=== PATIENT | female | born 1985 | race Caucasian/White ===

== ENCOUNTER 2016-07-13 15:07 | Emergency (ER) | payer SELFPAY ==
[2016-07-13 15:15] VITALS: BP 135/72
[2016-07-13] MEDS ORDERED: LEVE500T56 PO (15:24)
--- NOTE | 2016-07-13 15:49 | RAD ---
CT of the head without contrast, 07/13/2016: History: Seizure, fall, pain The ventricles are within normal limits in size. There is no shift of the midline structures. There is no evidence of acute intracranial hemorrhage or mass effect. The patient's skull is quite thick. IMPRESSION: No acute intracranial abnormality is detected. PQRS Compliance Statement: One or more of the following individualized dose reduction techniques were utilized for this examination: 1. Automated exposure control 2. Adjustment of the mA and/or kV according to patient size 3. Use of iterative reconstruction technique
--- NOTE | 2016-07-13 15:51 | RAD ---
Three-view study of the lumbar spine History: Low back pain. Patient has seizure last night and felt backwards. Findings: No compression fracture or discitis or osteolytic process or anterolisthesis is seen. The transverse processes are intact. Mild degenerative endplate spurring is seen at L1-L2. Moderate degenerative endplate spurring of the lower lumbar spine and T12-L1 is seen. IMPRESSION: No acute fracture.
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
== END 2016-07-13 16:15 | disposition home or self-care (01) ==
LOC: ER 15:07
DX: R56.9 Unspecified convulsions (principal); R51 Headache; M54.5 Low back pain; E66.01 Morbid (severe) obesity due to excess calories; Z88.0 Allergy status to penicillin; Z88.6 Allergy status to analgesic agent; Z88.1 Allergy status to other antibiotic agents; Z91.041 Radiographic dye allergy status; Z91.040 Latex allergy status
CPT/HCPCS: 70450; 72100; 99284-25